=== PATIENT | male | born 1975 | race African-American/Black ===

== ENCOUNTER 2020-11-14 07:26 | Outpatient (CLI) | payer MEDICARE ==
[2020-11-14 18:23] LABS: SARS-CoV-2 MS2 Positive; SARS-CoV-2 N Gene Negative; SARS-CoV-2 S Gene Negative; SARS-CoV-2 by NAA Not Detected (NotDetected); SARS-CoV-2 orf1ab Negative
== END 2020-11-14 07:27 | disposition home or self-care (01) ==
LOC: LABBT 07:26
PROVIDERS: ATTEND Internal Medicine Gastroenterology
DX: K63.5 Polyp of colon (principal); Z20.828 Contact with and (suspected) exposure to other viral communicable diseases
CPT/HCPCS: 87635; U0003

== ENCOUNTER 2020-11-19 06:36 | Day surgery (SDC) | payer MEDICARE ==
[2020-11-18 10:07] VITALS: BMI 33.3
--- NOTE | 2020-11-19 05:31 | HP ---
HISTORY OF PRESENT ILLNESS: This is a 45-year-old male with . The patient has history of colon polyps and had polypectomy in the past. He had multiple colon polyps removed. is very large and removed from the right colon area. The patient comes in for colonoscopy because of the above reason. MEDICAL ILLNESSES: 1. Hypertension. 2. Chronic kidney disease. 3. . 4. History of colon polyps. 5. Chronic . 6. Chronic anxiety. ALLERGIES: NONE. PHYSICAL EXAMINATION: VITAL SIGNS: His weight is 250 pounds, pulse is , blood pressure . CARDIOVASCULAR: ABDOMEN: Soft. No ADMITTING DIAGNOSES: A 45-year-old male with hypertension comes for a colonoscopy because of history of colon polyps. Job ID: [id number]
[2020-11-19] MEDS ORDERED: PROPOFOL 200 MG/20 ML VIAL ONE (10:28)
[2020-11-19] MEDS ORDERED: Lidocaine 1% PF 5 ML VIAL ONE (10:29)
--- NOTE | 2020-11-19 21:19 | OP ---
DATE OF PROCEDURE: 11/19/2020 OPERATIVE PROCEDURES: Colonoscopy with polypectomy. PREOPERATIVE DIAGNOSES: A 45-year-old male with chronic kidney disease, waiting for kidney transplant. The patient undergoing colonoscopy for colon cancer screening before he can get on the kidney transplant. The patient also has had colonoscopy with polypectomy done in the past. POSTOPERATIVE DIAGNOSES: 1. A 2 cm sized large polyp transverse colon on a thick stalk. 2. Hemorrhoids. 3. Mild sigmoid diverticular disease. DESCRIPTION OF PROCEDURE: The patient was placed on his left lateral position and was given sedation by Anesthesia Department. A rectal exam was done before scope was advanced into the rectum. No lesions felt on rectal exam. A Pentax videocolonoscope was introduced into the rectum and advanced all the way into the right colon. I could not really see the cecum very well. The patient had a very flabby abdomen and infra-abdominal compression, I could never reach the cecal part. I believe the scope was reached around just past the hepatic flexure. Withdrawal of scope from hepatic flexure into the transverse colon showed a very large polyp over the distal transverse colon area. The polyp measured approximately 2 cm. It was a long stalk. The stalk was quite bulky and thick. The polyp was removed with snare cautery with good hemostasis. The splenic flexure, descending colon, sigmoid colon, no lesion seen except for mild sigmoid diverticular disease. Retroflexion of scope in the rectum, hemorrhoids. DISCHARGE PLANNING: A 45-year-old male, came for a colonoscopy. He underwent colonoscopy and polypectomy. DISCHARGE RECOMMENDATION: 1. The patient was advised to call me if he develops abdominal pain, hematochezia, or fever. 2. In the absence of any of those above symptoms, come back to me in 2 weeks. Job ID: [id number]
== END 2020-11-19 12:10 | disposition home or self-care (01) ==
LOC: SDC 06:36
PROVIDERS: ATTEND Internal Medicine Gastroenterology
PROC: 0DBL8ZX Excision of Transverse Colon, Via Natural or Artificial Opening Endoscopic, Diagnostic (ICD-10-PCS; principal; 2020-11-19)
DX: Z12.11 Encounter for screening for malignant neoplasm of colon (principal); D12.3 Benign neoplasm of transverse colon; K57.31 Diverticulosis of large intestine without perforation or abscess with bleeding; K64.9 Unspecified hemorrhoids; I12.9 Hypertensive chronic kidney disease with stage 1 through stage 4 chronic kidney disease, or unspecified chronic kidney disease; N18.9 Chronic kidney disease, unspecified; F41.9 Anxiety disorder, unspecified; Z86.010 Personal history of colon polyps; Z79.82 Long term (current) use of aspirin; Z79.899 Other long term (current) drug therapy
CPT/HCPCS: 88305; J2704